=== PATIENT | female | born 1995 | race Caucasian/White ===

== ENCOUNTER 2020-11-22 06:55 | Inpatient (IN) | payer SELFPAY ==
[2020-11-22] VITALS (13 sets, daily range): BP systolic 100–150; BP diastolic 53–66; PULSE 62–111; RESP 16–18; TEMP 36.1–36.7; O2SAT 97–98; BMI 26.4
[2020-11-22 07:45] LABS: Absolute Lymphocyte Count 1.31 X10^3/uL (0.83-4.51); Absolute Neutrophil Count 17.7 X10^3/uL (2.0-7.7); Basophil# 0.07 X10^3/uL; Basophil% 0.3 % (0-1); Eosinophils% 13.9 % (0-5); Hemoglobin 13.9 g/dL (12.0-15.0); Lymphocyte # 1.31 X10^3/ul (0.83-4.51); Lymphocyte % 5.5 % (19-41); Mean Corp Hgb Conc 35.6 g/dL (32-36); Mean Corpuscular Hgb 31.7 pg (27.0-32.0); Mean Corpuscular Volume 88.8 fL (81-99); Mean Platelet Vol. 9.8 fl (6.2-12.0); Monocyte# 1.16 X10^3/uL; Monocyte% 4.9 % (0-10); NRBC Flagged by Analyzer 0 % (0-5); Neutrophil # 17.66 X10^3/uL (2.7-7.7); Neutrophil % 74.4 % (47-70); POSITIVE DIFFERENTIAL YES; POSITIVE MORPHOLOGY YES; Platelet Count 320 K/mm3 (150-450); RBC Distribution Width CV 12.2 % (11.6-14.6); RBC Distribution Width SD 39.8 fl (35.1-43.9); Red Blood Count 4.39 M/mm3 (4.2-5.4); White Blood Count 23.8 K/mm3 (4.4-11.0)
--- NOTE | 2020-11-22 08:03 | HP.PCM.OB_ITS ---
HPI - General General Date of Admission: 11/22/20 HPI Narrative AMY JASON, is a 25 F G1, P0 who presents to labor and delivery after reportedly being in labor for 2 days at home. She believes that she is due this week and has been followed with a bricklayer apprentice at home. She indicates that she has been pushing for 2 days but indicates last p.m. at 10:00 she was 6 cm when checked by her bricklayer apprentice. No vaginal examination since. She says she may have had some leaking of fluid several hours ago at which time her contractions became stronger. Upon presentation she is complete and +2 station and breathing heavy but not pushing. She indicates that she had some labs drawn early in but did not bring those with her. She denies having any vaginal cultures done. PFSH PFSH Allergy/AdvReac Type Severity Reaction Status Date / Time Sulfa (Sulfonamide Allergy PT UNSURE Verified 11/22/20 07:31 Antibiotics) OF REACTION ROS Review of Systems ROS Unobtainable: other Details: Patient in advanced labor pushing Vital Signs Vital Signs Vital Signs: 11/22/20 07:35 11/22/20 07:38 Temperature 97.0 F L Temperature Source Temporal Pulse Rate 67 63 Blood Pressure 139/66 H BP Systolic 139 BP Diastolic 66 Pulse Ox 98 Weight Weight: 149 lb 3.2 oz Body Mass Index (BMI) 26.4 Physical Exam Const alert, oriented x3 and no apparent distress Constitutional Narrative: In active labor HEENT normocephalic Eyes PERRL and EOMs intact bilaterally Neck General: normal visual inspection Chest inspection of chest normal Resp normal respiratory effort Resp Narrative: In labor Cardio regular rate and regular rhythm GI normal to inspection, nondistended, normoactive bowel sounds GI Narrative: , appears to be term Back/Spine normal ROM and normal to inspection Extremity normal to inspection, no joint enlargement, no clubbing, cyanosis or edema and no pedal edema Skin no rashes or lesions noted and no wounds Neuro oriented x3, CN's II-XII intact bilaterally, moves all extremities, no focal motor deficits and gait normal Psych mental status grossly normal and affect normal Labs Labs Labs: Blood Type Pending Antibody Screen Pending Hct 40.2 % (37-47) Hgb 14.2 g/dl (12.0-15.0) Assessment & Plan (1) No care in current in third trimester: PLAN: Patient at term in advanced active labor now complete and +2 station. Presented from home labor because she was having such strong contractions that she thought she may need to have an epidural. Upon arrival she refuses an epidural. Saline lock in place. labs drawn. Pediatrics aware. Expect spontaneous vaginal delivery.
[2020-11-22 08:08] LABS: Differential Indicated SCAN CRITERIA MET; Eosinophil# 3.31 X10^3/uL
[2020-11-22 08:45] LABS: Differential Comment SCANNED
--- NOTE | 2020-11-22 12:51 | OP.PCM_ITS ---
Vaginal Delivery Maternal Presentation Maternal Presentation: Active Labor Maternal Presentation: Patient presented and complete and +2 station from attempted home with layout operator. She thought her water had been ruptured for about 5 hours and indicated she had been pushing for approximately 2 days. Did not have a due date or prior ultrasound and indicated she thought her due date was about now. She appeared to be stated gestational age. Operative Information Date of Procedure: 11/22/20 Pre-Operative Diagnosis: IUP Post-Operative Diagnosis: IUP Surgery / Procedure Performed: Spontaneous Vaginal Delivery Type of Anesthesia: None Estimated Blood Loss: 350 cc Fluids Replaced: Crystalloid Findings Description of Procedure: Spontaneous vaginal delivery of a viable female infant with Apgars of 8/9 from an occiput anterior presentation with clear amniotic fluid and normal three-vessel placenta. Delayed cord clamping approximately 15 minutes after delivery. First-degree midline laceration which patient refused to have repaired. Placenta delivered approximately 1 hours and 10 minutes after the baby because patient refused to be examined after the baby was born. Patient pushed for approximately 5-1/2 hours after her arrival at [facility] and refused Kiwi vacuum application. Allowed Namita oils to be applied to abdomen by Dula which Dula indicated would facilitate delivery of the placenta. Sponges okay. Delivery physician: Efren James MD. Presentation: Vertex Amniotic Membrane Rupture Type: Spontaneous Amniotic Fluid Description: Clear Placental Delivery Description: Spontaneous Placenta Disposition: Patient desires to take home Cord Vessel Description: 3 Vessels Cord Entanglement: None A Gender: Female (1 minute): 8 (5 minute): 9 Delayed Cord Clamping: Yes Post Vaginal Delivery Medications Given After Delivery: - (Refused Pitocin) Episiotomy Description: None Laceration: Midline, Perineal Extension/lac and 1st degree (Refused repair) Complication Complications: None
--- NOTE | 2020-11-22 13:02 | PCM.DC ---
Discharge Instructions Diet Discharge Diet: No restrictions Activity Discharge Activity: May Drive (In 1 to 2 days if not taking narcotic pain medication), May Shower and May Take a Tub Bath May resume sexual activity in: 4-6 weeks Additional Activity Instructions:: Nothing in the vagina for 4-6 weeks. You may return to work/school in 6 weeks. Dressing / Incision Call your doctor if you observe: Fever of 101 or Higher, Inability to urinate, Inability to have a bowel movement and Using more than 1 pad per hour Follow Up Care When: Call [phone] to make an appointment with your doctor in 6 weeks. Test Results: Test results from this visit will be discussed in further detail at your follow-up appointment, if applicable. Discharge Plan Admission Admit Date/Time: 11/22/20 06:55 Primary Reason for Your Visit: Vaginal Delivery Attending Provider: Efren James Primary Care Provider: Care Physician,Jeannie Primary Discharge Orders/Prescriptions Referrals / Follow Up: Care Physician,No Primary [Primary Care Provider] - Disposition Disposition (needs filled in before D/C Order can be placed): Home, Self Care
--- NOTE | 2020-11-22 14:41 | NURSING ---
upon arrival to unit patient reports EDB of around 11/15/20 based on LMP with no complications. Patient reported that she had a neurosurgery spine physician (Bambi Cade) and that she was on her way. When Bamib arrived to unit she reported to nursing staff that patient was doing own visits and that she did not believe she was seeing a provider of any kind. Patient is requesting minimal interventions aware of standard ordered labs and pt declines at this time.
[2020-11-23 01:05] VITALS: BP 109/58; PULSE 90; RESP 16; TEMP 36.7
[2020-11-23 05:15] VITALS: PULSE 80; RESP 18; TEMP 37.2; O2SAT 96
[2020-11-23 08:30] VITALS: BP 105/60; PULSE 96; RESP 16; TEMP 36.3
--- NOTE | 2020-11-23 10:01 | PCM.PN.OB ---
Subjective Subjective Patient without complaints. Breast-feeding going well. Minimal vaginal bleeding reported. Wants to go home later today if baby is able to go. Objective Data Objective Data Vital Signs: Vital Signs Temp Pulse Resp BP Pulse Ox 97.4 F L 96 16 105/60 96 11/23/20 08:30 11/23/20 08:30 11/23/20 08:30 11/23/20 08:30 11/23/20 05:15 Oxygen Delivery Method Room Air Weight: 149 lb 3.2 oz Body Mass Index (BMI) 26.4 Intake & Output: Intake and Output for Last 24 Hours 11/21/20 11/22/20 11/23/20 23:59 23:59 23:59 Output Total 1190 / 1190 Balance -1190 / -1190 Lab / Micro Data Result Diagrams: 11/22/20 07:25 Assessment & Plan (1) No care in current in third trimester: COMMENT: Doing well day #1 status post routine spontaneous vaginal delivery. Will discharge to home with routine instructions.
[2020-11-23 12:45] VITALS: BP 109/62; PULSE 92; RESP 16; TEMP 36.8; O2SAT 95
--- NOTE | 2020-11-23 16:15 | CASEMGMT ---
Social Work Assessment Labor and Delivery Unit Patient Address: [address] [place] [id number] Phone number: [phone] Date of Referral: 11.23.2020 Time of Referral: 353 Referred By: Dr. Butcher Date of Intervention: 11.23.2020 Time of Intervention: 1614 Reason for Referral: No care, refused all screening and medications. 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 Father of baby not interacting with baby after delivery, slept throughout night, not engaging in any infant care. History obtained from: medical records and mother of baby (MOB) Sue Mir; father of baby (FOB) Sonny Mir also present for most of conversation. Household composition: MOB and FOB with in [place]. Plan to take to this home as well. Patient's parent/guardian status: MICHEL is a 25-year-old female, to the FOB for the last 8 years. Elon baby is the first child for both. Elon baby girl is to be named Santino Mir, born 11/[birth year]/2020. Medical History: MICHEL is 1, para 0 now 1 after delivering Santino. Delivery estimated at 40 to 41 weeks gestation. MOB had no care except for reported lab work, which the MOB did not bring in. Medical record indicates that MOB was working with machine burrer, who had reportedly checked the MOB and found the MOB to be 6 cm dilated prior to coming to the hospital. MICHEL reportedly was laboring for 2 days prior to hospital presentation. The plan had been for home . Per discussion with nursing staff however the Mold Insert Changer who came to the hospital was not aware of the MOB having any providers, nor had the Mold Insert Changer provided any type of care such as cervical checks. During this assessment social work explored as to the MOB's choice for no care. MICHEL reported to this policy writer to have received some lab work, and then did some reading and felt could manage care on her own at home. MOB made decision to come to the hospital due to uncertainty about labor, and how things were progressing, Infant delivered weighing 6 pounds 12 ounces. Apgars 8 and 9 at 1 and 5 minutes of life. MOB endorsed having a history of thyroid issues. Educational Status: MOB reported high school diploma, and some postsecondary classes. No college degree. No issues with reading, writing, or learning comprehension. MICHEL reported she was in the top 10 of her graduating high school class. 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 No reported financial issues or stressors. Infant Supplies: MOB and FOB reported to have needed infant supplies including a crib, Soren basket, car seat, clothing, diapers and wipes. MICHEL is planning to breast-feed. Childcare/Caregiver(s): MOB and FOB will be the primary caregivers. Transportation: No reported issues. Programs/Agencies Involved: No agency involvement reported. Denies need for services such as WIC. MOB plans to [facility]. According to have follow-up on 11/[facility]/2020 at [facility] [place]. Plan to follow with the [place] office but [place] tomorrow due to appointment availability. Children Services/Legal Issues: None reported. Behavioral Health Issues: Mental Health History: MOB endorsed to this policy writer history of being manic. This policy writer explored whether there is any history of diagnoses such as schizophrenia or bipolar disorder, to which MOB affirmed and made comment that there were many labels given to MOB in the past. 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 MOB report reported first psychiatric hospitalization was prior to marriage, with next psychiatric hospitalization occurring about 6 months after marriage. MOB and FOB indicated several hospitalizations in the first part of their marriage. FOB reported the last hospitalization was about 4 years ago. MOB reported she has been on various medications but is not currently on any standardized medications prescribed by a doctor for MOB's emotional health. Reported that she has been trying to take care of this on her own focusing, on healthy living and nutrition. MOB and FOB reported they have become better at recognizing when MOB is starting to have some jeny and then deal with this at home. FOB reported that they decrease the MOB's schedule and stimulus to help manage any flareups. MOB endorsed history of racing thoughts and worry which leads to lack of sleep. During private conversation completed the [place] depression screen, with a score well below the threshold for depression. Explored with the MOB any history of suicidal ideation, planning, or intent. MOB reported in the past, around the times of trying to heal from her emotional health issues, there were periods of time when MOB did not care if she got hurt or hurt herself. So no active intent to hurt herself just lack of care about consequences. Denied any of those types of thoughts during this . Denied any history of thoughts of harm to others. Treatment history: MOB endorsed several psychiatric hospitalizations. Reported at least one of them was at [facility]. Reported has seen various counselors and doctors, though could not provide this policy writer with any name or agency. MOB endorsed history of counseling in the past through her sabianism, specifically with the MOB great uncle. No current counseling or treatment. Substance Use History: MOB denies any history of substance use issues including any alcohol use during nor any marijuana. MOB does take supplements although uncertain what the supplements are. Family History: Not discussed Drug Screens: Not performed on MOB or the baby. Family/Social Stressors and/or concerns: Plan for home , but then delivered at the hospital. MOB reported the hospitalization and delivery has gone much better than MOB had anticipated. Other potential stressors include maternal history of significant mental health, not currently treated with a counselor or medical doctor. No care. Initially the MOB indicated to have been working with her machine burrer who had been checking the MOB cervical change. This policy writer explored with the MOB the validity of this. MOB then reported to this policy writer that she had been working with 2 helpers, Bambi Cade who is the Mold Insert Changer present at the hospital and then another helper by the name of Leighton Dang, whom mom reported is actually a cousin who just moved from [place] and is in training. MOB expressed that she did not want the baby to get hearing testing until later on as did not want any waves or stimulus around the baby's head and brain. MOB reported to be a little upset with having to take the baby to the care appointment on 11/24/2020, as had wanted to just stay home with the baby and get into a rhythm. MOB reported fear that going out of the house and going to an appointment after hospital discharge will disrupt the rhythm that she and the baby are developing. MOB reported hope that she and the baby how would be able to just to stay at home for a while. Support Systems: MOB reported the FOB is a strong support, and denies any type of domestic violence, control, or intimidation. MOB reports additional support in the timeframe from the MOB mother, [id number], and Bambi Cade the Mold Insert Changer. Depression/Shaken Baby/Safe Sleeping: Educated parents to safe sleeping and shaken baby prevention. Educated to mood and anxiety disorders, risk factors, and that both mothers and fathers can experience this. Encourage self-care, fresh air, movement, and seeking out counseling and/or medication should symptoms start to arise. Educated to risk for psychosis in light of maternal history of bipolar and/or schizophrenia. ASSESSMENT: Met with the MOB and FOB together and then alone with the MOB. During the time that the parents were together, both participated in conversation with this policy writer. Both MOB and FOB pleasant, cooperative, and engaged in conversation. MOB held good eye contact, smiled throughout assessment, with a bright and cheery attitude. Eye contact became fair when topics such as decision making on no care, or declination of medical services/intervention for the baby were approached. MOB remained pleasant throughout. This policy writer did gently broach with the MOB the importance of getting the baby to medical follow-up, especially in light of being discharged the day after delivery. MOB voiced many questions as to what exactly would be done in the pediatric follow-up, and expressed desire to be able to keep the baby home. MOB inquired whether the MOB could just weigh the baby at home since mother has a scale. This policy writer indicated it is best to get the baby to the doctors for follow up. Gently broached that sometimes children services follow-up with parents when there is concern about children not receiving needed medical care and/or the parents having emotional health issues which could potentially impede care of child. This policy writer impressed upon the MOB, the importance of getting the baby to needed follow-up. Emotional support and encouragement provided to the parents during this assessment. Answered questions as able. Provided packet on mood and anxiety disorders, which also includes resources for follow-up and support. Provided a [facility] resource list as well. MOB declined referrals to help me grow. MOB did hold baby throughout social work assessment and was calm and appropriate and how handled the baby. PLAN: MOB and infant will discharge home. Community resource information has been provided. Anticipate a call to children services due to dependency risk factors related to lack of care which was due to MOB believing she could manage care on her own at home, discrepancy in receiving care (such as reporting had been seeing a machine burrer and lavender farm worker who was present on unit indicating lack of awareness of MOB having a provider), MOB's voiced frustration with having to take the baby to pediatric follow-up, and maternal history of significant mental health issues not currently in treatment. -ERIC Churchill, COMMUNITY OUTREACH DIRECTOR
[2020-11-23 17:47] VITALS: BP 103/67; PULSE 100; RESP 16; TEMP 36.2; O2SAT 97
--- NOTE | 2020-11-24 16:31 | CASEMGMT ---
Social Work Labor and Delivery Unit Called [facility] children services and spoke with Asia Peters in the intake department, extension [phone]. Referral due to dependency concerns for this family. Refer to original social work assessment dated 11/23/2020 for further details. Brief maternal and history is provided. No other community mental health social worker requested or indicated. -ELIAZAR Churchill, PATTERN STORAGE CLERK *Information generated via the [employer]Connect system.*
== END 2020-11-23 18:30 | disposition home or self-care (01) | DRG 807 ==
PROVIDERS: Admitting Provider Obstetrics & Gynecology; Visit Provider Obstetrics & Gynecology
DX: O70.0 First degree perineal laceration during delivery (principal); Z37.0 Single live birth; Z3A.00 Weeks of gestation of pregnancy not specified
CPT/HCPCS: 59025; 59050; 85025; 86850; 86900; 86901; 99218; G0378